=== PATIENT | male | born 1950 | race Caucasian/White ===

== ENCOUNTER → 2018-11-21 09:44 | Outpatient (CLI) | payer OTHER, SELFPAY ==
[2018-11-18 14:30] VITALS: BMI 20.2
[2018-11-21 11:18] LABS: AST(SGOT) 19 U/L (15-37); Alanine Aminotransfer ALT/SGPT 20 U/L (16-61); Albumin, Serum 3.4 g/dL (3.2-5.0); Alkaline Phosphatase 121 U/L (45-117); Bilirubin, Direct 0.09 mg/dL (0.00-0.30); Cholesterol 108 mg/dL (200); Globulin 3.1 g/dL (2.2-4.2); High Density Lipoprotein 42 mg/dL; Protein, Total 6.5 g/dL (6.4-8.2); Triglycerides 63 mg/dL; Very Low Density Lipoprotein 13 mg/dL (5-40)
== END ==
PROVIDERS: Referring Provider Internal Medicine Cardiovascular Disease; Visit Provider Internal Medicine Cardiovascular Disease
DX: E78.2 Mixed hyperlipidemia (principal)
CPT/HCPCS: 36415; 80061; 80076

== ENCOUNTER → 2019-06-01 06:42 | Outpatient (CLI) | payer OTHER, SELFPAY ==
[2019-05-19 08:58] VITALS: BMI 20.6
--- NOTE | 2019-06-01 09:41 | STRESSREP_ITS ---
Stress Test Report Date: 06-01-19 Procedure: Exercise tolerance test/imaging study Indications: CAD; PCI; syncope Consent: Per the patient Procedure: The patient exercised on a Lopez protocol for 8 minutes and 30 seconds completing Stage II and 2 minutes and 30 seconds of Stage III achieving a peak heart rate of 130 bpm (84 % predicted maximal heart rate) with a peak blood pressure 164/90 mmHg and a peak MET capacity of 9 METs. The baseline ECG demonstrated sinus bradycardia. The peak exercise ECG demonstrated no obvious ECG changes. There was a rare PVC pretest. The functional capacity was considered good. There was no complaint of chest discomfort during exercise or recovery. The examination was discontinued secondary to dyspnea and leg discomfort. Impression: 1. Technically adequate (percent predicted maximal heart rate greater than 85%) exercise tolerance test 2. Peak exercise ECG with no obvious ECG changes 3. There was a rare PVC pretest 4. Nuclear images pending Myocardial perfusion imaging study: Technique: The patient was injected with 11.4 mCi of technetium 99m Cardiolite and subsequently rest SPECT Cardiolite nuclear imaging was obtained in the horizontal long, vertical long, and short axis views. The patient exercised on a Lopez protocol for 8 minutes and 30 seconds completing Stage II and 2 minutes and 30 seconds of Stage III achieving a peak heart rate of 130 bpm (84 % predicted maximal heart rate) with a peak blood pressure 164/90 mmHg and a peak MET capacity of 9 METs. The patient was injected with 33.3 mCi of technetium 99m Cardiolite and subsequently stress SPECT Cardiolite nuclear imaging was obtained in the horizontal long, vertical long, and short axis views. A gated Cardiolite study at peak stress was obtained. Interpretation: Rest and stress SPECT Cardiolite nuclear imaging status post realignment, normalization, and attenuation correction, demonstrates the appearance of relative uniform tracer uptake and myocardial perfusion appearing within normal limits. There is end systolic thickening and brightening. The gated Cardiolite study demonstrates myocardial thickening and inward wall motion. The reported LVEF is 58 %. Impression: 1. Rest and stress SPECT Cardiolite nuclear imaging demonstrate relative uniform tracer uptake and myocardial perfusion appearing within normal limits. 2. The gated Cardiolite study reports an LVEF of 58 %. This note was generated with [employer] software. It may contain incorrect words, spelling, and punctuation that were not noted in checking the note before signing.
== END ==
PROVIDERS: Referring Provider Physician Assistant Medical; Visit Provider Physician Assistant Medical
DX: I25.10 Atherosclerotic heart disease of native coronary artery without angina pectoris (principal); Z95.5 Presence of coronary angioplasty implant and graft
CPT/HCPCS: 78452; 93017; A9500; A4216

== ENCOUNTER → 2019-08-20 10:43 | Outpatient (CLI) | payer OTHER, SELFPAY ==
[2019-08-12 08:24] VITALS: BMI 20.3
--- NOTE | 2019-08-20 11:10 | RAD_ITS ---
STUDY: X-RAY CHEST REASON FOR EXAM: Male, 69 years old. Smoker for 45 years. Shortness of breath. TECHNIQUE: Frontal and lateral views of the chest. COMPARISON: February 24, 2012 FINDINGS: Marked hyperexpansion unchanged. There is no demonstrated pleural abnormality. Borderline cardiomegaly. Normal mediastinum and danilo. Normal visualized pulmonary arteries. Aortic tortuosity with calcification. Normal visualized thoracic spine. Normal visualized ribs, clavicles, and shoulders. There is no demonstrated abnormality of the visualized soft tissue structures of the upper abdomen. RAD/Chest PA and Lateral IMPRESSION: Stable borderline cardiomegaly with hyperexpansion compatible with COPD. No acute finding. Electronically Signed: Radhames Fletcher MD at 11:48 EDT , Service support ,
[2019-08-20 11:45] LABS: Absolute Neutrophil Count 3.6 X10^3/uL (2.0-7.7); Basophil# 0.02 X10^3/uL; Basophil% 0.3 % (0-1); Eosinophil# 0.09 X10^3/uL; Eosinophils% 1.5 % (0-5); Hematocrit 47.1 % (40-54); Hemoglobin 15.2 g/dL (13.0-16.5); Lymphocyte % 25.9 % (19-41); Mean Corp Hgb Conc 32.3 g/dL (32-36); Mean Corpuscular Hgb 31.5 pg (27.0-32.0); Mean Corpuscular Volume 97.7 fL (80-94); Mean Platelet Vol. 11.2 fl (6.2-12.0); Monocyte# 0.86 X10^3/uL; Monocyte% 13.9 % (0-10); NRBC Flagged by Analyzer 0 % (0-5); Neutrophil % 58.2 % (47-70); Platelet Count 159 K/mm3 (150-450); RBC Distribution Width SD 46.7 fl (35.1-43.9); Red Blood Count 4.82 M/mm3 (4.6-6.2); White Blood Count 6.2 K/mm3 (4.4-11.0)
[2019-08-20 12:08] LABS: ALB/GLOB Ratio 1.2 RATIO (0.9-2.4); AST(SGOT) 23 U/L (15-37); Alanine Aminotransfer ALT/SGPT 21 U/L (16-61); Albumin, Serum 3.8 g/dL (3.2-5.0); Alkaline Phosphatase 111 U/L (45-117); Anion Gap 6 (5-15); BUN 15 mg/dL (7-18); BUN/Creat Ratio 20.6 RATIO (10-20); Calcium,Total 8.3 mg/dL (8.5-10.1); Chloride 107 mmol/L (98-107); Cholesterol 130 mg/dL (200); Creatinine, Serum 0.73 mg/dL (0.70-1.30); EST Glomerular Filtration Rate 114 mL/min (>60); Est Glom Filt Rate - Afr Amer 138 mL/min (>60); Globulin 3.3 g/dL (2.2-4.2); Glucose 90 mg/dL (74-106); High Density Lipoprotein 51 mg/dL; Potassium 4.1 mmol/L (3.5-5.1); Protein, Total 7.1 g/dL (6.4-8.2); Sodium Level 141 mmol/L (136-145); Triglycerides 62 mg/dL; Very Low Density Lipoprotein 12 mg/dL (5-40)
== END ==
PROVIDERS: Referring Provider Physician Assistant Medical; Visit Provider Physician Assistant Medical
DX: I10 Essential (primary) hypertension (principal); I25.10 Atherosclerotic heart disease of native coronary artery without angina pectoris; E78.2 Mixed hyperlipidemia
CPT/HCPCS: 36415; 71046; 80053; 80061; 85025

== ENCOUNTER → 2020-06-23 09:17 | Outpatient (CLI) | payer OTHER, SELFPAY ==
[2020-06-19 10:37] VITALS: BMI 20.3
[2020-06-23 10:58] LABS: AST(SGOT) 23 U/L (15-37); Alanine Aminotransfer ALT/SGPT 24 U/L (16-61); Albumin, Serum 3.6 g/dL (3.2-5.0); Alkaline Phosphatase 106 U/L (45-117); Bilirubin, Direct 0.17 mg/dL (0.00-0.30); Cholesterol 127 mg/dL (200); Globulin 3.2 g/dL (2.2-4.2); High Density Lipoprotein 49 mg/dL; Protein, Total 6.8 g/dL (6.4-8.2); Triglycerides 76 mg/dL; Very Low Density Lipoprotein 15 mg/dL (5-40)
== END ==
PROVIDERS: Referring Provider Internal Medicine Cardiovascular Disease; Visit Provider Internal Medicine Cardiovascular Disease
DX: E78.00 Pure hypercholesterolemia, unspecified (principal)
CPT/HCPCS: 36415; 80061; 80076

== ENCOUNTER → 2021-02-24 07:22 | Outpatient (CLI) | payer OTHER, SELFPAY ==
[2020-12-06 08:41] VITALS: BMI 21.5
[2021-02-24 09:35] LABS: AST(SGOT) 18 U/L (15-37); Alanine Aminotransfer ALT/SGPT 22 U/L (16-61); Albumin, Serum 3.6 g/dL (3.2-5.0); Alkaline Phosphatase 126 U/L (45-117); Anion Gap 5 (5-15); BUN 14 mg/dL (7-18); BUN/Creat Ratio 16.6 RATIO (10-20); Bilirubin, Direct 0.14 mg/dL (0.00-0.30); Calcium,Total 8.3 mg/dL (8.5-10.1); Chloride 105 mmol/L (98-107); Cholesterol 126 mg/dL (200); Creatinine, Serum 0.84 mg/dL (0.70-1.30); EST Glomerular Filtration Rate 96 mL/min (>60); Est Glom Filt Rate - Afr Amer 116 mL/min (>60); Globulin 3.2 g/dL (2.2-4.2); Glucose 90 mg/dL (74-106); High Density Lipoprotein 59 mg/dL; Potassium 3.7 mmol/L (3.5-5.1); Protein, Total 6.8 g/dL (6.4-8.2); Sodium Level 140 mmol/L (136-145); Triglycerides 50 mg/dL; Very Low Density Lipoprotein 10 mg/dL (5-40)
== END ==
PROVIDERS: Visit Provider Nurse Practitioner Family
DX: I10 Essential (primary) hypertension (principal); E78.2 Mixed hyperlipidemia; I25.10 Atherosclerotic heart disease of native coronary artery without angina pectoris; Z72.0 Tobacco use; Z95.5 Presence of coronary angioplasty implant and graft
CPT/HCPCS: 36415; 80048; 80061; 80076

== ENCOUNTER 2021-12-01 08:17 | Outpatient (CLI) | payer OTHER, SELFPAY ==
[2021-12-01 10:03] LABS: AST(SGOT) 19 U/L (15-37); Alanine Aminotransfer ALT/SGPT 18 U/L (16-61); Albumin, Serum 3.5 g/dL (3.2-5.0); Alkaline Phosphatase 122 U/L (45-117); Bilirubin, Direct 0.17 mg/dL (0.00-0.30); Cholesterol 120 mg/dL (200); Globulin 3.4 g/dL (2.2-4.2); High Density Lipoprotein 51 mg/dL; Protein, Total 6.9 g/dL (6.4-8.2); Triglycerides 59 mg/dL; Very Low Density Lipoprotein 12 mg/dL (5-40)
== END 2021-12-01 23:59 | disposition home or self-care (01) ==
LOC: LAB 08:18
PROVIDERS: Visit Provider Internal Medicine Cardiovascular Disease
DX: E78.00 Pure hypercholesterolemia, unspecified (principal)
CPT/HCPCS: 36415; 80061; 80076

== ENCOUNTER 2022-03-02 21:18 | Observation (INO) | payer OTHER, MEDICARE, SELFPAY ==
[2022-03-02 21:18] VITALS: BP 163/90; PULSE 100; RESP 18; TEMP 36.7; O2SAT 98; BMI 20.3
--- NOTE | 2022-03-02 21:42 | EKG12_ITS ---
Test Reason : FALL Blood Pressure : / mmHG Vent. Rate : 087 BPM Atrial Rate : 087 BPM P-R Int : 128 ms QRS Dur : 086 ms QT Int : 366 ms P-R-T Axes : 070 026 061 degrees QTc Int : 440 ms Normal sinus rhythm Normal ECG Confirmed by KEENAN ARANA, CIARAN ([id number]), department editor JANEL MARTINEZ ([id number]) on 03/04/2022 1:45:08 PM Referred By: GISSELLE Confirmed By:CIARAN HUSSEIN MD
--- NOTE | 2022-03-02 21:55 | RAD_ITS ---
STUDY: X-RAY CHEST REASON FOR EXAM: Male, 71 years old. fall TECHNIQUE: Single AP portable view of the chest. COMPARISON: None. FINDINGS: There is hyperinflation of the lungs consistent with chronic obstructive lung disease (COPD). There is no demonstrated pleural abnormality. No acute airspace disease Normal size heart. Normal mediastinum and danilo. Normal visualized pulmonary arteries. Normal visualized aortic arch and descending thoracic aorta. Normal visualized thoracic spine. Normal visualized ribs, clavicles, and shoulders. There is no demonstrated abnormality of the visualized soft tissue structures of the upper abdomen. RAD/Chest 1 View (Portable) IMPRESSION: COPD. Lungs are clear Electronically Signed: Chico Arias DO at 22:19 EDT ,
--- NOTE | 2022-03-02 21:56 | EX.ED.DYSGE1 ---
HPI History of Present Illness Chief Complaint: Fall Informant: patient Narrative Narrative: Patient presents reporting weakness opening his right eye for the past 1 week. He has had progressive generalized weakness over the past week and fell tonight. He presents for evaluation. He denies injury from the fall. He denies headache. [facility] Medical History (Updated 03/02/22 @ 23:[address] Esperanza Hinojosa MD) Atherosclerotic heart disease of [place] coronary artery without angina pectoris Essential hypertension Mixed hyperlipidemia Presence of stent in coronary artery (~02/27/12) Tobacco abuse Home Medications aspirin 81 mg tablet,delayed release 81 mg PO DAILY #30 tab 11/18/18 [Rx Last Taken Unknown] lisinopril 40 mg tablet 40 mg PO QDAY 90 Days #90 tab 05/11/21 [Rx Last Taken Unknown] nitroglycerin 0.4 mg sublingual tablet 0.4 mg SUBLINGUAL Q5-15M PRN #25 tab 05/11/21 [Rx Last Taken Unknown] clopidogrel 75 mg tablet See Rx Instructions .ROUTE .COMPLEX #90 tab 09/03/21 [Rx Last Taken Unknown] atorvastatin 80 mg tablet 80 mg PO QDAY #90 tab 09/19/21 [Rx Last Taken Unknown] metoprolol succinate 25 mg tablet,extended release 24 hr 12.5 mg PO BID #45 tab 03/01/22 [Rx Last Taken Unknown] Allergy/AdvReac Type Severity Reaction Status Date / Time No Known Allergies Allergy Verified 03/02/22 21:20 Family History Mother CAD (coronary artery disease) Myocardial infarction Sister Hypertension Surgical History Presence of coronary angioplasty implant and graft (~02/27/12) Social History Smoking Status: Current every day smoker tobacco type: cigarettes alcohol intake: never substance use type: does not use ROS ROS ED Constitutional Constitutional ED: Denies chills or fever(s) Eyes Eyes: Reports blurry vision and other Details: Unable to open right eye ENT ENT ED: Denies sore throat Cardiovascular Cardiovascular: Denies chest pain or palpitations Respiratory/Chest Respiratory/Chest: Denies cough or dyspnea Gastrointestinal Gastrointestinal: Denies abdominal pain, nausea or vomiting Genitourinary Genitourinary ED: Denies dysuria Musculoskeletal Musculoskeletal: Denies back pain or neck pain Integumentary Denies rash Neurologic Neurologic: Reports weakness; Denies headache(s) Allergic/Immunologic Allergic/Immunologic ED: Denies urticaria EXAM Physical Exam Const Vital Signs: 03/02/22 21:18 03/02/22 22:57 Temperature 98.1 F Temperature Source Temporal Pulse Rate 100 83 Respiratory Rate 18 14 Blood Pressure 163/90 H 150/105 H Blood Pressure Mean 114 120 Pulse Ox 98 98 Oxygen Delivery Method Room Air Room Air Positive well nourished and well developed General Appearance ED: well developed HEENT Reports moist mucous membranes HEENT Narrative: Mild decreased wrinkling noted on the right forehead, however patient does appear to be able to raise his eyebrows. No facial droop appreciated. Eyes Eyes Narrative: Patient unable to open right eyelid. Neck supple Chest Wall inspection of chest normal and palpation of chest normal Resp normal respiratory effort and clear to auscultation bilaterally Cardio regular rate and regular rhythm GI normal to inspection, nondistended, normoactive bowel sounds and non-tender Palpation: soft Extremity normal to inspection Neuro oriented x3 Neuro Narrative: Normal strength and sensation noted in the extremities. Normal [id number] testing. Sensorium / Orientation: alert Psych mental status grossly normal Skin no rashes or lesions noted MDM MDM MDM Narrative Medical decision making narrative: EKG, chest x-ray, lab work obtained. CT of the head ordered. Lab Data Attestation: I reviewed the patient's lab results. Labs: Laboratory Results - last 24 hr 03/02/22 03/02/22 21:40 21:40 WBC 6.2 RBC 4.45 L Hgb 14.8 Hct 43.2 MCV 97.1 H MCH 33.3 H MCHC 34.3 RDW Std Deviation 46.5 H RDW Coeff of Annamaria 12.8 Plt Count 166 MPV 11.0 Immature Gran % (Auto) 0.300 Neut % (Auto) 72.7 H Lymph % (Auto) 11.5 L [place] % (Auto) 15.0 H Eos % (Auto) 0.3 Baso % (Auto) 0.2 Absolute Neuts (auto) 4.5 Absolute Lymphs (auto) 0.71 L Nucleated RBC % 0 Sodium 141 Potassium 3.5 Chloride 107 Carbon Dioxide 25.0 Anion Gap 9 BUN 18 Creatinine 0.87 Estim Creat Clear Calc 76.03 Est GFR (MDRD) Af Amer 112 Est GFR (MDRD) Non-Af 92 BUN/Creatinine Ratio 20.7 H Glucose 98 Calcium 8.3 L Total Bilirubin 0.40 Direct Bilirubin 0.10 AST 27 ALT 28 Alkaline Phosphatase 111 Total Protein 6.9 Albumin 3.6 Globulin 3.3 Radiography Chest X-Ray - ED: 1 View, Read by ED Physician and Chronic Changes Diagnostic Testing: Clinical Impression(s) from Imaging Studies Chest X-Ray 03/02/22 21:55 IMPRESSION: COPD. Lungs are clear Electronically Signed: Chico AriasDO at 22:19 EDT , Head/Neck CTA 03/02/22 22:53 IMPRESSION: Normal CTA Head and neck with contrast. Electronically Signed: Chico Arias DO at 23:33 EDT , EKG Initial EKG: Attestation: I personally reviewed and interpreted this EKG as follows: Interpretation: Sinus Rhythm (Sinus 87 with no acute ischemia.) Treatment and Re-Evaluation Narrative: Patient's lab work is unremarkable. EKG normal. Chest x-ray shows chronic changes only per my interpretation. Head CT is unremarkable. On repeat examination patient continues to have right eyelid droop. Eyelids are raised manually and his right pupil is slightly dilated. He does not have his eye deviated laterally or inferiorly. CTA of the head and neck was obtained to rule out aneurysm. This returns unremarkable. I do feel patient should be evaluated by neurology and have an MRI to rule out stroke as cause of his symptoms. I will speak with hospitalist. Discharge Plan Triage Chief Complaint: Fall ED Provider: Esperanza Hinojosa Dx/Rx/DC Orders Clinical Impression: Change in vision, Ptosis, right eyelid Prescriptions: No Action aspirin [Adult Aspirin Regimen] 81 mg tablet,delayed release (DR/EC) 81 mg PO DAILY Qty: 30 RF: 0 lisinopril 40 mg tablet 40 mg PO QDAY 90 Days Qty: 90 RF: 3 nitroglycerin [Nitrostat] 0.4 mg tablet, sublingual 0.4 mg SUBLINGUAL Q5-15M PRN (Reason: chest pain) Qty: 25 RF: 3 clopidogrel 75 mg tablet See Rx Instructions .ROUTE .COMPLEX Qty: 90 RF: 3 atorvastatin 80 mg tablet 80 mg PO QDAY Qty: 90 RF: 3 metoprolol succinate 25 mg tablet extended release 24 hr 12.5 mg PO BID Qty: 45 RF: 3 Primary Care Provider: Care Physician,No Primary Referrals: Care Physician,No Primary [Primary Care Provider] - Disposition Disposition: Acute Care Hospital [facility]
[2022-03-02 21:57] LABS: Absolute Lymphocyte Count 0.71 X10^3/uL (0.83-4.51); Absolute Neutrophil Count 4.5 X10^3/uL (2.0-7.7); Basophil# 0.01 X10^3/uL; Basophil% 0.2 % (0-1); Eosinophil# 0.02 X10^3/uL; Eosinophils% 0.3 % (0-5); Hematocrit 43.2 % (40-54); Hemoglobin 14.8 g/dL (13.0-16.5); Lymphocyte # 0.71 X10^3/ul (0.83-4.51); Lymphocyte % 11.5 % (19-41); Mean Corp Hgb Conc 34.3 g/dL (32-36); Mean Corpuscular Hgb 33.3 pg (27.0-32.0); Mean Corpuscular Volume 97.1 fL (80-94); Monocyte# 0.93 X10^3/uL; NRBC Flagged by Analyzer 0 % (0-5); Neutrophil # 4.49 X10^3/uL (2.7-7.7); Neutrophil % 72.7 % (47-70); Platelet Count 166 K/mm3 (150-450); RBC Distribution Width CV 12.8 % (11.6-14.6); RBC Distribution Width SD 46.5 fl (35.1-43.9); Red Blood Count 4.45 M/mm3 (4.6-6.2); White Blood Count 6.2 K/mm3 (4.4-11.0)
--- NOTE | 2022-03-02 22:07 | CT_ITS ---
STUDY: CT BRAIN WITHOUT CONTRAST REASON FOR EXAM: Male, 71 years old. fall RADIATION DOSAGE (If Supplied By Facility): CTDIvol = ( 44.99 ) mGy, DLP = ( 779.24 ) mGycm TECHNIQUE: Transaxial CT imaging of the brain was performed without administration of intravenous contrast material. Individualized dose optimization techniques were used for this CT. COMPARISON: No relevant priors. FINDINGS: Normal soft tissue structures. Normal calvarium. There is mild cerebral atrophy with widening of the extra-axial spaces and ventricular dilatation. Normal white matter tracts of the cerebral hemispheres. Normal basal ganglia and thalami. Normal brainstem. Normal cerebellum. There is no intracranial hemorrhage. There are no findings of an acute ischemic infarction. Left maxillary sinusitis CT/Brain/Head without Contrast IMPRESSION: Chronic involutional changes of the brain. Left maxillary sinusitis Electronically Signed: Chico Arias DO at 22:32 EDT ,
[2022-03-02 22:13] LABS: AST(SGOT) 27 U/L (15-37); Alanine Aminotransfer ALT/SGPT 28 U/L (16-61); Albumin, Serum 3.6 g/dL (3.2-5.0); Alkaline Phosphatase 111 U/L (45-117); Anion Gap 9 (5-15); BUN 18 mg/dL (7-18); BUN/Creat Ratio 20.7 RATIO (10-20); Calcium,Total 8.3 mg/dL (8.5-10.1); Chloride 107 mmol/L (98-107); Creatinine, Serum 0.87 mg/dL (0.70-1.30); EST Glomerular Filtration Rate 92 mL/min (>60); Est Glom Filt Rate - Afr Amer 112 mL/min (>60); Estimated Creatinine Clearance 76.03 ml/min; Globulin 3.3 g/dL (2.2-4.2); Glucose 98 mg/dL (74-106); Potassium 3.5 mmol/L (3.5-5.1); Protein, Total 6.9 g/dL (6.4-8.2); Sodium Level 141 mmol/L (136-145)
--- NOTE | 2022-03-02 22:53 | CT_ITS ---
STUDY: CTA HEAD AND NECK WITH CONTRAST REASON FOR EXAM: Male, 71 years old. eyelid droop, dilated pupil RADIATION DOSAGE (If Supplied By Facility): CTDIvol = ( 23.77 ) mGy, DLP = ( 786.00 ) mGycm TECHNIQUE: CT angiography was performed with a multi-detector CT scanner. Data acquisition was obtained from the skull base through the vertex following intravenous administration of IV 100mL Isovue-370. MIP images were reconstructed from the axial data set. Post-processing of the angiographic images was performed, with multiplanar reformation and 3D reconstruction. Individualized dose optimization techniques were used for this CT. COMPARISON: No relevant priors. FINDINGS: Normal bilateral petrous carotid arteries. Normal right cavernous carotid artery with a normal supraclinoid bifurcation. There is calcified plaque formation of the left cavernous carotid artery, without a cross-sectional luminal stenosis. Normal right A1 segments of the anterior cerebral artery. Normal left A1 segments of the anterior cerebral artery. Normal intact anterior communicating artery (ACOM). Normal bilateral A2 segments of the anterior cerebral arteries. Normal right M1 and M2 segments of the middle cerebral arteries, with a normal M1 bifurcation. Normal left M1 and M2 segments of the middle cerebral arteries, with a normal M1 bifurcation. Normal right posterior communicating artery (PCOM). Normal left posterior communicating artery (PCOM). Normal bilateral vertebral arteries. Normal basilar artery with a normal basilar bifurcation. The visualized bilateral superior cerebellar (SCA) arteries are normal. Normal bilateral P1, P2 and visualized P3 segments of the posterior cerebral arteries. There is no demonstrated aneurysm of the [place] of [place]. There is no demonstrated abnormality of the visualized brain. AORTIC ARCH: Normal visualized aortic arch. Normal origins of the brachiocephalic, left common carotid, and left subclavian arteries. RIGHT CAROTID ARTERIES: Normal right common carotid artery (CCA). Normal right common carotid bulb. Normal origin of the right internal carotid (ICA) artery without a hemodynamically significant stenosis. Normal visualized cervical portion of the right internal carotid artery. Normal origin of the right external carotid artery (ECA). LEFT CAROTID ARTERIES: Normal left common carotid artery (CCA). Normal left common carotid bulb. Normal origin of the left internal carotid (ICA) artery without a hemodynamically significant stenosis. Normal visualized cervical portion of the left internal carotid artery. Normal origin of the left external carotid artery (ECA). VERTEBRAL ARTERIES: Normal bilateral vertebral arteries. CT/CTA Head AND Neck W/ Contrast IMPRESSION: Normal CTA Head and neck with contrast. Electronically Signed: Chico Arias DO at 23:33 EDT ,
[2022-03-02 22:57] VITALS: BP 150/105; PULSE 83; RESP 14; O2SAT 98
--- NOTE | 2022-03-02 23:52 | TELEMED_ITS ---
[facility] Telemed has confirmed receipt of a request for visit. This document confirms receipt of the order initiating the consult. To find the results of the consultation, please view the patient's reports for the scanned Telemed Consult.
--- NOTE | 2022-03-02 23:57 | PCM.HP.STD ---
HPI - General General Date of Admission: 03/02/22 HPI Narrative HEBER KRISHNAMURTHY, is a 71 M with a significant history of tobacco abuse; CAD status post a stent in 2011 and on dual antiplatelet therapy and high intensity statin who presents to the emergency department with progressively worsening difficulty opening his right eye. Associated with symptom is mild blurry vision of the right eye. He tries opening his right his left eye moves. Also patient has generalized weakness. Per family patient has a poor gait and fell on the same day of presentation [facility] Medical History (Updated 03/03/22 @ 00:[address] Randy Dobson MD) Atherosclerotic heart disease of [place] coronary artery without angina pectoris Essential hypertension Mixed hyperlipidemia Presence of stent in coronary artery (~02/27/12) Tobacco abuse Home Medications aspirin 81 mg tablet,delayed release 81 mg PO DAILY #30 tab 11/18/18 [Rx Last Taken Unknown] lisinopril 40 mg tablet 40 mg PO QDAY 90 Days #90 tab 05/11/21 [Rx Last Taken Unknown] nitroglycerin 0.4 mg sublingual tablet 0.4 mg SUBLINGUAL Q5-15M PRN #25 tab 05/11/21 [Rx Last Taken Unknown] clopidogrel 75 mg tablet See Rx Instructions .ROUTE .COMPLEX #90 tab 09/03/21 [Rx Last Taken Unknown] atorvastatin 80 mg tablet 80 mg PO QDAY #90 tab 09/19/21 [Rx Last Taken Unknown] metoprolol succinate 25 mg tablet,extended release 24 hr 12.5 mg PO BID #45 tab 03/01/22 [Rx Last Taken Unknown] Allergy/AdvReac Type Severity Reaction Status Date / Time No Known Allergies Allergy Verified 03/02/22 21:20 Family History Mother CAD (coronary artery disease) Myocardial infarction Sister Hypertension Surgical History Presence of coronary angioplasty implant and graft (~02/27/12) Social History Smoking Status: Current every day smoker tobacco type: cigarettes alcohol intake: never substance use type: does not use ROS ROS Narrative Pertinent positives and pertinent negatives as noted in HPI. All other systems were reviewed and are negative. Vital Signs Vital Signs Vital Signs: 03/02/22 21:18 03/02/22 22:57 Temperature 98.1 F Temperature Source Temporal Pulse Rate 100 83 Respiratory Rate 18 14 Blood Pressure 163/90 H 150/105 H Blood Pressure Mean 114 120 Pulse Ox 98 98 Oxygen Delivery Method Room Air Room Air Weight Weight: 68.039 kg Body Mass Index (BMI) 20.3 Physical Exam Narrative Physical exam: General: Well-nourished, well-developed. Head: Normocephalic, atraumatic, no tenderness Eyes: Vision is grossly intact. EOMI ENT, no trauma, moist mucous membranes, no rhinorrhea Neck: Nontender, full range of motion, no spinal tenderness, deformities, step-off CVS: Regular rate and rhythm. S1-S2 present. No murmur, gallop or rub. Respiratory : clear to auscultation bilaterally, chest wall nontender, no wheezing Abdomen: Soft, nontender, nondistended, normal bowel sounds, no masses : Deferred Back: Nontender, no CVA tenderness, no midline spinal tenderness, deformities, step-offs Extremities: Nontender full range of motion, no trauma Skin: Normal color, no trauma, abrasions Neuro: Alert, oriented. Ptosis of the right eyelids. Mild and sluggish constriction of the right pupil compared to left pupil which constricts briskly. Patient is unable to obtain his right eye for vision examination. Can count fingers with left eye. Deep tendon reflexes is not hyperreflexia throughout. Strength is 5 out of 5 throughout. No dysmetria with [id number] test and [id number] test. Psychiatry: Normal mood. Normal affect. Not depressed. Not anxious. Results Lab / Micro Data Result Diagrams: 03/02/22 21:40 03/02/22 21:40 Labs: Laboratory Results - last 24 hr 03/02/22 21:40: WBC 6.2, RBC 4.45 L, Hgb 14.8, Hct 43.2, MCV 97.1 H, MCH 33.3 H, MCHC 34.3, RDW Std Deviation 46.5 H, RDW Coeff of Annamaria 12.8, Plt Count 166, MPV 11.0, Immature Gran % (Auto) 0.300, Neut % (Auto) 72.7 H, Lymph % (Auto) 11.5 L, [place] % (Auto) 15.0 H, Eos % (Auto) 0.3, Baso % (Auto) 0.2, Absolute Neuts (auto) 4.5, Absolute Lymphs (auto) 0.71 L, Nucleated RBC % 0 03/02/22 21:40: Sodium 141, Potassium 3.5, Chloride 107, Carbon Dioxide 25.0, Anion Gap 9, BUN 18, Creatinine 0.87, Estim Creat Clear Calc 76.03, Est GFR (MDRD) Af Amer 112, Est GFR (MDRD) Non-Af 92, BUN/Creatinine Ratio 20.7 H, Glucose 98, Calcium 8.3 L, Total Bilirubin 0.40, Direct Bilirubin 0.10, AST 27, ALT 28, Alkaline Phosphatase 111, Total Protein 6.9, Albumin 3.6, Globulin 3.3 Radiology Impression Chest X-Ray 03/02/22 21:55 IMPRESSION: COPD. Lungs are clear Electronically Signed: Chico FrazierDO mariam at 22:19 EDT Reading Location ID and State: [facility] / [place] Tel , Service support , Head/Neck CTA 03/02/22 22:53 IMPRESSION: Normal CTA Head and neck with contrast. 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 Head and neck CT was visualized and independently interpreted and I agree radiology interpretation above. CBC showed normal white counts. Serial NINDS NIH Scale ordered Lipid profile and A1c ordered. Physical therapy, occupational therapy to work with patient. N.p.o. until bedside swallow eval. Daily aspirin and Plavix continue. High intensity statin continued Patient is outside window of permissive hypertension MRI of brain ordered. Echocardiogram ordered. Discussed emergent department doctor who will get [facility] neurology consult at the emergency department Hypertension Blood pressure is not within goal Metoprolol and lisinopril continued. Trend blood pressure and adjust blood pressure medications. Tobacco abuse Risk of tobacco was discussed. Nicotine replacement was offered. Patient declined. DVT prophylaxis Subcutaneous Lovenox ordered. Charges/Coding Visit Charges OBSV E&M: 60412 Initial observation care L3
[2022-03-03] VITALS (17 sets, daily range): BP systolic 132–153; BP diastolic 87–108; PULSE 71–90; RESP 16–21; TEMP 36.6–37.4; O2SAT 94–98; BMI 20.3
--- NOTE | 2022-03-03 00:25 | ED.RN ---
Per Dr Dobson patient is to have [facility] telehealth consult in ED before going to PCU. SOC robot obtained from PCU and placed in room.
--- NOTE | 2022-03-03 01:50 | ED.RN ---
call SOC asking for update ETA for neuro consult, am told patient is in the que to be seen.
--- NOTE | 2022-03-03 02:55 | ED.RN ---
Called [facility] again, was told neurologist was called away for stroke alert. ETA 15 minutes for consult.
--- NOTE | 2022-03-03 05:49 | MRI_ITS ---
STUDY: MRI BRAIN WITHOUT CONTRAST REASON FOR EXAM: Male, 71 years old. cva TECHNIQUE: Standardized multiplanar fat and water weighted pulse sequences were obtained. COMPARISON: CT 03/02/2022 FINDINGS: There is mild cerebral atrophy with widening of the extra-axial spaces and ventricular dilatation. There are a limited number of small white matter hyperintensities, distributed throughout the deep white matter tracts of the cerebral hemispheres, consistent with mild chronic white matter ischemic changes. There is no evidence for recent intracranial ischemia or other cause of cytotoxic edema on diffusion weighted imaging (DWI). Normal T2* images of the brain without demonstrated susceptibility artifact. There is no demonstrated hemosiderin stain. Normal bilateral basal ganglia. Normal thalami. There is no extra-axial fluid accumulation. Normal flow voids within the major intracranial circulation suggesting patency by spin echo criteria. Normal sella turcica, pituitary gland, infundibular stalk, optic chiasm and hypothalamus. Normal tectal plate and pineal gland. There is ill-defined of the T2 hyperintensity of the right side of the brainstem extending into the right cerebral peduncle but no restricted diffusion to suggest infarct. Mass should be excluded. Correlation with MRI with contrast is recommended. Normal cerebellum. Normal basal cisterns. Normal bilateral temporal bones. Normal bilateral internal auditory canals. No demonstrated orbital abnormality, within the constraints of a routine brain study. Air-fluid level in the left maxillary sinus consistent with acute sinusitis. Normal calvarium and skull base. Normal visualized soft tissue structures. Normal visualized upper cervical spine. MRI/Brain without Contrast IMPRESSION: Edema of the right side of the brainstem and right cerebral peduncle worrisome for mass. Correlation with MRI with contrast is recommended. Electronically Signed: Harris Villela MD at 12:56 EDT ,
--- NOTE | 2022-03-03 07:54 | PN.HOSP_ITS ---
Subjective Subjective Still with the right eyelid ptosis. As well as left-sided weakness. Symptoms began a week ago. No change. Objective Data Objective Data Vital Signs: Vital Signs Temp Pulse Resp BP Pulse Ox 37.2 C 77 16 132/97 H 97 03/03/22 05:42 03/03/22 06:38 03/03/22 05:42 03/03/22 05:42 03/03/22 05:42 Oxygen Delivery Method Room Air Weight: 68.039 kg Body Mass Index (BMI) 20.3 Lab / Micro Data Result Diagrams: 03/03/22 08:02 03/03/22 08:02 Labs: Laboratory Results - last 24 hr 03/02/22 21:40: WBC 6.2, RBC 4.45 L, Hgb 14.8, Hct 43.2, MCV 97.1 H, MCH 33.3 H, MCHC 34.3, RDW Std Deviation 46.5 H, RDW Coeff of Annamaria 12.8, Plt Count 166, MPV 11.0, Immature Gran % (Auto) 0.300, Neut % (Auto) 72.7 H, Lymph % (Auto) 11.5 L, [place] % (Auto) 15.0 H, Eos % (Auto) 0.3, Baso % (Auto) 0.2, Absolute Neuts (auto) 4.5, Absolute Lymphs (auto) 0.71 L, Nucleated RBC % 0 03/02/22 21:40: Sodium 141, Potassium 3.5, Chloride 107, Carbon Dioxide 25.0, Anion Gap 9, BUN 18, Creatinine 0.87, Estim Creat Clear Calc 76.03, Est GFR (MDRD) Af Amer 112, Est GFR (MDRD) Non-Af 92, BUN/Creatinine Ratio 20.7 H, Glucose 98, Calcium 8.3 L, Total Bilirubin 0.40, Direct Bilirubin 0.10, AST 27, ALT 28, Alkaline Phosphatase 111, Total Protein 6.9, Albumin 3.6, Globulin 3.3 Radiography Diagnostic Testing: Radiology Impression Chest X-Ray 03/02/22 21:55 IMPRESSION: COPD. Lungs are clear Electronically Signed: Chico Arias DO at 22:19 EDT Reading Location ID and State: [facility] / [place] Tel , Service support , Head/Neck CTA 03/02/22 22:53 IMPRESSION: Normal CTA Head and neck with contrast. Electronically Signed: Chico Arias DO at 23:33 EDT , Physical Exam Const alert and no apparent distress HEENT HEENT Narrative: Ptosis of right eyelid. Right eye deviated out. Left eye with full range of motion. No icterus. Right pupil dilated compared to the left. Head and Scalp: normocephalic Resp normal respiratory effort, no retractions, no use of accessory muscles and clear to auscultation bilaterally Cardio regular rate, regular rhythm, S1 normal heart sound and S2 normal heart sound GI normal to inspection, nondistended, normoactive bowel sounds, soft to palpation, non-tender and non-distended Extremity normal to inspection and full ROM Neuro Neuro Narrative: Muscle strength 5-5 in the right upper and left upper extremi ties. 5 out of 5 in the right lower extremity and 4 out of 5 in the left lower extremity. Patient had ataxia with [id number] and [id number] on the left upper and left lower extremities, respectively. 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 Recommended MRI, echo, ASA, HIS, then subsequent neurology reevaluation after testing complete. * symptoms began 1 week prior, therefore, not a a candidate for TPA * PT OT evaluate and treat 2. HTN * continue lisinopril, metoprolol succinate 3. CAD * continue ASA, HIS, clopidogrel 4. VTE prophylaxis: LMWH Charges/Coding Visit Charges Inpatient E&M: 27689 Subs Hosp L3
[2022-03-03] MEDS: Enoxaparin 40 MG/0.4 ML Syringe SC (08:11)
[2022-03-03] MEDS: Clopidogrel Bisulfate 75 MG Tablet PO (08:11)
[2022-03-03] MEDS: Aspirin E.C. 81 MG Tablet PO (08:11)
[2022-03-03 08:26] LABS: Absolute Lymphocyte Count 0.83 X10^3/uL (0.83-4.51); Absolute Neutrophil Count 2.9 X10^3/uL (2.0-7.7); Basophil# 0.01 X10^3/uL; Basophil% 0.2 % (0-1); Hematocrit 40.7 % (40-54); Hemoglobin 13.5 g/dL (13.0-16.5); Lymphocyte # 0.83 X10^3/ul (0.83-4.51); Lymphocyte % 17.7 % (19-41); Mean Corp Hgb Conc 33.2 g/dL (32-36); Mean Corpuscular Hgb 32.2 pg (27.0-32.0); Mean Corpuscular Volume 97.1 fL (80-94); Mean Platelet Vol. 10.9 fl (6.2-12.0); Monocyte# 0.89 X10^3/uL; NRBC Flagged by Analyzer 0 % (0-5); Neutrophil # 2.93 X10^3/uL (2.7-7.7); Neutrophil % 62.7 % (47-70); Platelet Count 148 K/mm3 (150-450); RBC Distribution Width SD 46.5 fl (35.1-43.9); Red Blood Count 4.19 M/mm3 (4.6-6.2); White Blood Count 4.7 K/mm3 (4.4-11.0)
[2022-03-03 08:51] LABS: Anion Gap 4 (5-15); BUN 15 mg/dL (7-18); BUN/Creat Ratio 17.7 RATIO (10-20); Chloride 106 mmol/L (98-107); Cholesterol 111 mg/dL (200); Creatinine, Serum 0.85 mg/dL (0.70-1.30); EST Glomerular Filtration Rate 95 mL/min (>60); Est Glom Filt Rate - Afr Amer 115 mL/min (>60); Estimated Creatinine Clearance 77.82 ml/min; Glucose 93 mg/dL (74-106); High Density Lipoprotein 42 mg/dL; Potassium 3.5 mmol/L (3.5-5.1); Sodium Level 138 mmol/L (136-145); Triglycerides 76 mg/dL; Very Low Density Lipoprotein 15 mg/dL (5-40)
[2022-03-03 08:53] LABS: Hemoglobin A1c 5.6 % (3.8-5.6)
[2022-03-03] MEDS: Metoprolol(XL)Succ 25 MG Tablet 12.5 MG PO ×2 (11:01→22:17)
[2022-03-03] MEDS: Lisinopril 40 MG Tablet PO (11:01)
[2022-03-03] MEDS: Acetaminophen 325 MG Tablet 650 MG PO (13:56)
--- NOTE | 2022-03-03 13:57 | MRI_ITS ---
STUDY: MRI BRAIN WITH CONTRAST REASON FOR EXAM: Male, 71 years old. right side brainstem edema -- evaluate for mass TECHNIQUE: Standardized multiplanar fat and water weighted pulse sequences were obtained. IV 13 cc dotarem was administered for the contrast portion of the examination. COMPARISON: 03/03/2022 FINDINGS: Abnormal heterogeneous enhancing lesion along the right cerebral peduncle seen extending to the level of the chely with somewhat expansile appearance. Thickening and enhancement of the right tentorial leaflet along with abutment by the mass. Findings most likely represent meningioma of the tentorial leaflet. Overall size is approximately 2.9 cm x 2.4 cm x 3 cm. Other differential possibilities include metastatic disease or [employer] malignancy. No additional areas of abnormal enhancement in the supra or infratentorial compartment. MRI/Brain WITH Contrast IMPRESSION: Heterogeneously enhancing likely extra-axial dural based mass most likely originating from the right tentorial leaflet with supra and infratentorial involvement with edema in the chely and the right middle cerebral peduncle. Differential considerations include most likely a meningioma. Other differential possibilities include metastatic disease. Electronically Signed: Ziggy Moser MD at 16:53 EDT ,
[2022-03-03] MEDS: 0.9% Saline Lock 10 ML Syringe IV (17:56)
[2022-03-03] MEDS: dexAMETHasone 10 MG/ML Vial IV (17:56)
--- NOTE | 2022-03-03 21:46 | PCM.DC.SUM ---
Providers Date of Admission: 03/02/22 Primary Care Physician: No Primary Care Phys Reason For Visit: PTOSIS OF R EYE LID; BLURRY VISION Diagnosis Discharge Diagnosis (1) Cranial nerve III palsy: Status: Acute Code(s): H49.00 - Third [oculomotor] nerve palsy, unspecified eye Qualifiers: Laterality: right Qualified Code(s): H49.01 - Third [oculomotor] nerve palsy, right eye (2) Brain mass: Status: Acute Code(s): G93.89 - Other specified disorders of brain Medications at Discharge Home Medications nitroglycerin 0.4 mg sublingual tablet 0.4 mg SUBLINGUAL Q5-15M PRN #25 tab 05/11/21 aspirin [Adult Aspirin Regimen] 81 mg PO DAILY 03/03/22 atorvastatin 80 mg PO DAILY 03/03/22 clopidogrel 75 mg PO DAILY 03/03/22 lisinopril 40 mg PO QDAY 03/03/22 metoprolol succinate 12.5 mg PO BID 03/03/22 Hospital Course Summary of Care Provided Minutes Spent on Discharge: 15 Hospital Course: Patient was admitted with ptosis of his right eye and left-sided weakness. Head and neck CT obtained at the emergency department was unremarkable. [facility] telemetry neurologist was consulted at emergency department and recommendations made. Patient was admitted to progressive care unit and placed on telemetry. Serial NIH's were done. MRI brain without contrast showed edema on the right side of the brainstem and right cerebral peduncle worrisome for a mass. Follow-up MRI brain with contrast showed Heterogeneously enhancing likely extra-axial dural based mass most likely originating from the right tentorial leaflet with supra and infratentorial involvement with edema in the chely and the right middle cerebral peduncle. The patient continued with aspirin, Plavix and high intensity statin. Hypertension patient blood pressure mostly within goal. Patient home metoprolol and lisinopril were continued. Patient's blood pressures were trended. Tobacco abuse Patient was counseled Patient was transferred to [facility] for possible neurosurgery evaluation. Patient left our hospital on 03/03/2022 at 2225. Weight / BMI Weight Weight: 68.039 kg Body Mass Index (BMI) 20.3 ABG / Lab / Microbiology Data Result Diagrams: 03/03/22 08:02 03/03/22 08:02 Laboratory: Laboratory Results - last 24 hr 03/02/22 21:40: WBC 6.2, RBC 4.45 L, Hgb 14.8, Hct 43.2, MCV 97.1 H, MCH 33.3 H, MCHC 34.3, RDW Std Deviation 46.5 H, RDW Coeff of Annamaria 12.8, Plt Count 166, MPV 11.0, Immature Gran % (Auto) 0.300, Neut % (Auto) 72.7 H, Lymph % (Auto) 11.5 L, [place] % (Auto) 15.0 H, Eos % (Auto) 0.3, Baso % (Auto) 0.2, Absolute Neuts (auto) 4.5, Absolute Lymphs (auto) 0.71 L, Nucleated RBC % 0 03/02/22 21:40: Sodium 141, Potassium 3.5, Chloride 107, Carbon Dioxide 25.0, Anion Gap 9, BUN 18, Creatinine 0.87, Estim Creat Clear Calc 76.03, Est GFR (MDRD) Af Amer 112, Est GFR (MDRD) Non-Af 92, BUN/Creatinine Ratio 20.7 H, Glucose 98, Calcium 8.3 L, Total Bilirubin 0.40, Direct Bilirubin 0.10, AST 27, ALT 28, Alkaline Phosphatase 111, Total Protein 6.9, Albumin 3.6, Globulin 3.3 03/03/22 08:02: WBC 4.7, RBC 4.19 L, Hgb 13.5, Hct 40.7, MCV 97.1 H, MCH 32.2 H, MCHC 33.2, RDW Std Deviation 46.5 H, RDW Coeff of Annamaria 13.0, Plt Count 148 L, MPV 10.9, Immature Gran % (Auto) 0.400, Neut % (Auto) 62.7, Lymph % (Auto) 17.7 L, [place] % (Auto) 19.0 H, Eos % (Auto) 0.0, Baso % (Auto) 0.2, Absolute Neuts (auto) 2.9, Absolute Lymphs (auto) 0.83, Nucleated RBC % 0 03/03/22 08:02: Sodium 138, Potassium 3.5, Chloride 106, Carbon Dioxide 28.0, Anion Gap 4 L, BUN 15, Creatinine 0.85, Estim Creat Clear Calc 77.82, Est GFR (MDRD) Af Amer 115, Est GFR (MDRD) Non-Af 95, BUN/Creatinine Ratio 17.7, Glucose 93, Calcium 8.0 L, Triglycerides 76, Cholesterol 111, LDL Cholesterol 54, VLDL Cholesterol 15, HDL Cholesterol 42 03/03/22 08:02: Hemoglobin A1c 5.6 Microbiology: Microbiology 03/03/22 14:05 Nasal Secretion SARS-CoV-2 Antigen (Rapid) - Final Radiography Diagnostic Testing: Radiology Impression Chest X-Ray 03/02/22 21:55 IMPRESSION: COPD. Lungs are clear Electronically Signed: Chico Arias DO at 22:19 EDT , Brain CT 03/02/22 22:07 IMPRESSION: Chronic involutional changes of the brain. Left maxillary sinusitis Electronically Signed: Chico Arias DO at 22:32 EDT , ADDENDUM: 03/03/22 1033 IMPRESSION: undefined Head/Neck CTA 03/02/22 22:53 IMPRESSION: Normal CTA Head and neck with contrast. Electronically Signed: Chico Arias DO at 23:33 EDT , Brain MRI 03/03/22 05:49 IMPRESSION: Edema of the right side of the brainstem and right cerebral peduncle worrisome for mass. Correlation with MRI with contrast is recommended. Electronically Signed: Harris Villela MD at 12:56 EDT , Brain MRI 03/03/22 13:57 IMPRESSION: Heterogeneously enhancing likely extra-axial dural based mass most likely originating from the right tentorial leaflet with supra and infratentorial involvement with edema in the chely and the right middle cerebral peduncle. Differential considerations include most likely a meningioma. Other differential possibilities include metastatic disease. Electronically Signed: Ziggy Moser MD at 16:53 EDT , Meaningful Use Info Meaningful Use Diagnoses (Choose all that apply): None applicable Discharge Plan Admission Admit Date/Time: 03/02/22 23:46 Attending Provider: Darwin Vasquez Primary Care Provider: Care Physician,No Primary Consulting Providers: Randy Dobson Discharge Orders/Prescriptions Prescriptions: No Action nitroglycerin [Nitrostat] 0.4 mg tablet, sublingual 0.4 mg SUBLINGUAL Q5-15M PRN (Reason: chest pain) Qty: 25 RF: 3 atorvastatin 80 mg tablet 80 mg PO DAILY RF: 0 clopidogrel 75 mg tablet 75 mg PO DAILY RF: 0 aspirin [Adult Aspirin Regimen] 81 mg tablet,delayed release (DR/EC) 81 mg PO DAILY RF: 0 metoprolol succinate 25 mg tablet extended release 24 hr 12.5 mg PO BID RF: 0 lisinopril 40 mg tablet 40 mg PO QDAY RF: 0 Referrals / Follow Up: Care Physician,No Primary [Primary Care Provider] -
[2022-03-03] MEDS: Atorvastatin Calcium 80 MG Tablet PO (22:18)
--- NOTE | 2022-03-04 00:16 | NURSING ---
This RN gave report to JEFFERY Box of [facility] @2119. Family in room w/ patient and was taken by transport @2229 to go to [facility].
== END 2022-03-03 22:25 | disposition short-term general hospital (02) ==
LOC: ED 23:44 → PCU 03-03 00:13
PROVIDERS: Admitting Provider Hospitalist; Emergency Provider Emergency Medicine
DX: H49.01 Third [oculomotor] nerve palsy, right eye (principal); I25.10 Atherosclerotic heart disease of native coronary artery without angina pectoris; E78.2 Mixed hyperlipidemia; Z79.02 Long term (current) use of antithrombotics/antiplatelets; R53.1 Weakness; G93.89 Other specified disorders of brain; Z79.82 Long term (current) use of aspirin; I10 Essential (primary) hypertension; Z79.899 Other long term (current) drug therapy; F17.210 Nicotine dependence, cigarettes, uncomplicated
CPT/HCPCS: 36415; 70450; 70496; 70498; 70551; 70552; 71045; 80048; 80061; 80076; 83036; 85025; 87426; 92610; 93005; 96372; 96374; 97161; 97165; 99218; 99285; 99406; A9575; Q9967; A4216; G0378